=== PATIENT | male | born 1965 | race Caucasian/White ===

== ENCOUNTER → 2021-02-23 | Outpatient (CLI) | payer BC ==
--- NOTE | 2021-02-23 11:23 | MM ---
Reason for exam: clinical finding. Physical Findings: Nurse Summary: 1 x 1cm nodule in the left breast at the nipple (nurse ts). MG 3D Diag Mammo W/Cad AMANDA Bilateral CC and MLO view(s) were taken. The breast tissue is heterogeneously dense. This may lower the sensitivity of mammography. Heavy bilateral gynecomastia but otherwise, no discrete abnormality. These results were verbally communicated with the patient and result sheet given to the patient on 02/23/21. ASSESSMENT: Benign, BI-RAD 2 RECOMMENDATION: Clinical management of both breasts. Manage on a clinical basis with regard to etiology of the gynecomastia. Surgical consultation can be considered if it remains symptomatic.
== END | disposition home or self-care (01) ==
LOC: RADMAMWWP 07:45
PROVIDERS: ATTEND Family Medicine
DX: N62 Hypertrophy of breast (principal)
CPT/HCPCS: 77062; 77066